=== PATIENT | female | born 1950 | race Caucasian/White ===

== ENCOUNTER 2022-11-28 10:13 | Emergency (ER) | payer MEDICARE, SELFPAY ==
[2022-11-28 10:24] VITALS: BP 123/73; PULSE 88; RESP 16; TEMP 36.7; O2SAT 97
--- NOTE | 2022-11-28 10:30 | RT.EKG_ITS ---
APPROVED REPORT Exam: Resting ECG Reason for Exam: chest pain Patient Location: E HR:82 bpm ECG Measurements Heart Rate 82 AXIS WV 157 P 70 QRSd 91 QRS 47 QT 367 T 61 QTc 428 Conclusion Sinus rhythm...normal P axis, V-rate 60- 99
[2022-11-28 10:48] VITALS: BP 125/58; PULSE 79; PULSE 85; RESP 14; O2SAT 96
[2022-11-28 11:01] VITALS: BP 108/58; PULSE 75; PULSE 78; RESP 15; O2SAT 94
[2022-11-28] MEDS: Mylanta Suspension 30 ML CUP PO (11:03)
[2022-11-28 11:08] LABS: Source Nasal/Nares
[2022-11-28 11:10] LABS: Abs Immature Grans 0.01 10^3/uL (0.0-0.06); Absolute Basophil Count 0.06 10^3/uL (0.0-0.2); Absolute Lymphocyte Count 1.83 10^3/uL (1.2-3.4); Absolute Monocyte Count 0.64 10^3/uL (0.1-0.8); Absolute Neutrophil Count 2.83 10^3/uL (1.2-6.7); Basophils % 1.1; Eosinophils % 3.6; HCT 39.6 % (36.0-46.0); HGB 13.2 g/dL (11.2-15.7); Immature Grans % 0.2; Lymphocytes % 32.9; MCH 29.8 pg (27.0-33.0); MCHC 33.3 % (32.0-36.0); MCV 89 fL (80-95); MPV 8.8 fL (8.0-11.0); Monocytes % 11.5; Neutrophils % 50.7; Platelet Count 263 10^3/uL (130-400); RBC 4.43 10^6/uL (3.93-5.22); RDW 13.2 % (11.7-14.6); RDW-SD 43.2 fL; WBC 5.57 10^3/uL (4.4-10.8)
[2022-11-28 11:16] VITALS: BP 105/70; PULSE 74; PULSE 78; O2SAT 94
[2022-11-28 11:32] LABS: ALT 25 U/L (14-59); AST 19 U/L (15-37); Albumin 3.5 g/dL (3.4-5.0); Alkaline Phosphatase 70 U/L (46-116); Anion Gap 8.7 mmol/L (3-11); BUN 15 mg/dL (7-18); Bilirubin, Total 0.4 mg/dL (0.2-1.0); CO2 26.3 mmol/L (21.0-32.0); CREATININE 0.8 mg/dL (0.55-1.02); Calcium 8.8 mg/dL (8.5-10.1); Chloride 107 mmol/L (98-107); Estimated GFR 79.22 (mL/min/1.73m2); Glucose 101 mg/dL (74-106); Lipase 43 U/L (16-77); NT-proBNP 44 pg/mL (<300); Sodium 142 mmol/L (136-145); Total Protein 6.9 g/dL (6.4-8.2); Troponin I < 50 ng/L (<or=60)
[2022-11-28 11:41] LABS: COVID-19 PCR Negative (Negative)
[2022-11-28 12:29] LABS: Bilirubin Negative (Negative); Blood Large (Negative); Clarity Clear (Clear); Glucose Negative (Negative); Ketones Negative (Negative); Leukocyte Esterase Negative (Negative); Nitrite Negative (Negative); Urobilinogen 0.2 mg/dL (Up to 0.2); pH 5.5 (5-8)
--- NOTE | 2022-11-28 12:32 | ED.GENADUL_ITS ---
Discharge Plan Disposition Patient Disposition: Home Condition: Stable Discharge Details Clinical Impression: Chest pain Primary Care Provider: Paulina Kurtz ED Provider: Deirdre Garcia Discharge Instructions Instructions: Chest Pain (ED) Additional Instructions: Please follow-up with your primary care physician for stress test in the outpatient setting at their discretion of course, I recommend starting on some Pepcid [id number] Keep yourself hydrated You may set up a Holter monitor as well in the outpatient setting, I will order 1 to further evaluate if you are having palpitations Should you have new or worsening complaints I recommend you being reassessed in the emergency department Referrals: Paulina Kurtz [Primary Care Provider] - 1 day Discharge Orders Other Ambulatory Orders: Holter Monitor (Routine) Timeframe: 1 Week Facility: [facility] - Location: Respiratory Therapy Ordered By: Deirdre Garcia Medical Decision Making 72-year-old female presents with report of chest pain and malaise Malaise for the past week and lightheadedness, chest pain started 48 hours ago, nonexertional, history of anxiety and heartburn, was unsure as to whether or not there is a cardiac equivalent EKG within normal limits for patient, 2 negative troponin analysis with 48 hours of symptoms, reassuring Diagnostic labs do not show evidence of significant acute abnormality Low suspicion for cardiac etiology of patient's complaint, alleviation of symptoms with Mylanta administration, instructed to start Pepcid at home and to follow-up with , Recommendation for outpatient stress test although relatively low suspicion for cardiac etiology of patient's complaints, no clinical signs or symptoms consistent with pulmonary embolism, no hypoxia, no tachypnea, no tachycardia, instructed to return should she have new or worsening complaints and to follow-up with her doctor in 24 to 48 hours for reassessment HPI General Date/Time Provider Initiated Documentation: 11/28/22 10:19 . HPI Narrative: This 72-year-old female who is otherwise reportedly healthy presents with tired feeling, lightheaded for the past 10 days with some pressure and chest and a sore throat per patient. She denies any exertional component in fact she shoveled her entire driveway during the last snowstorm and felt time aside from just being tired after. Has had stress test approximately 5 years ago which was normal per patient. States he has a history of anxiety and heartburn which is presented similarly in the past, has same symptoms currently. Denies any fever or chills. Denies any known sick contacts. Denies any urinary symptoms. Denies any cough. General Stated Complaint: Chest Pain BRENDA: 3 PFSH All Active Problems (Updated 11/28/22 @ 13:22 by ANDREW Manriquez) Palpitations (Acute) Chest pain (Acute) Social History Smoking risk assessment performed?: No Do you feel safe at home: Yes Exam Narrative Exam Narrative: Patient alert oriented and appears well, pupils equal round reactive to light and accommodation, no respiratory distress, lungs clear to auscultation, cardiac rate and rhythm regular, no palpable chest wall pain, no abdominal tenderness, skin pink warm dry, fully alert and oriented, no significant peripheral edema, nontender calf exam bilaterally, neurovascularly intact Course Vital Signs Vital signs: Vital Signs Temperature 36.7 C 11/28/22 10:24 Pulse 88 11/28/22 10:24 Respiratory Rate 16 11/28/22 10:24 Blood Pressure 123/73 11/28/22 10:24 Pulse Oximetry 97 11/28/22 10:24 Temperature 36.7 C 11/28/22 10:24 Temperature Source Tympanic 11/28/22 10:24 Pulse 74 11/28/22 11:16 Pulse 78 11/28/22 11:16 Respiratory Rate 15 11/28/22 11:01 Respiratory Effort Normal 11/28/22 10:57 Blood Pressure 105/70 11/28/22 11:16 Blood Pressure Mean 76 11/28/22 11:16 Blood Pressure Position Sitting 11/28/22 10:24 Pulse Oximetry 94 11/28/22 11:16 Oxygen Delivery Method Room Air 11/28/22 10:24 Oxygen Flow Rate 0 11/28/22 10:24 Pain Level 0 11/28/22 10:24 Lab/Test Results Lab/Test Results: Laboratory Tests Range/Units 11/28/22 11/28/22 11/28/22 10:55 10:55 10:55 WBC (4.4-10.8) 10^3/uL 5.57 RBC (3.93-5.22) 10^6/uL 4.43 Hgb (11.2-15.7) g/dL 13.2 Hct (36.0-46.0) % 39.6 MCV (80-95) fL 89 MCH (27.0-33.0) pg 29.8 MCHC (32.0-36.0) % 33.3 RDW (11.7-14.6) % 13.2 Plt Count (130-400) 10^3/uL 263 MPV (8.0-11.0) fL 8.8 Immature Gran % 0.2 Neutrophils % 50.7 Lymphocytes % 32.9 Monocytes % 11.5 Eosinophils % 3.6 Basophils % 1.1 Nucleated RBC % (0.0-0.3) % 0.0 Absolute Neutrophils (1.2-6.7) 10^3/uL 2.83 Absolute Lymphocytes (1.2-3.4) 10^3/uL 1.83 Absolute Monocytes (0.1-0.8) 10^3/uL 0.64 Absolute Eosinophils (0.0-0.7) 10^3/uL 0.20 Absolute Basophils (0.0-0.2) 10^3/uL 0.06 Sodium (136-145) mmol/L 142 Potassium (3.5-5.1) mmol/L 4.0 Chloride (98-107) mmol/L 107 Carbon Dioxide (21.0-32.0) mmol/L 26.3 Anion Gap (3-11) mmol/L 8.7 BUN (7-18) mg/dL 15 Creatinine (0.55-1.02) mg/dL 0.8 Est GFR (CKD-EPI 2020) (mL/min/1.73m2) 79.22 Glucose (74-106) mg/dL 101 Calcium (8.5-10.1) mg/dL 8.8 Magnesium (1.8-2.4) mg/dL 2.0 Total Bilirubin (0.2-1.0) mg/dL 0.4 AST (15-37) U/L 19 ALT (14-59) U/L 25 Alkaline Phosphatase (46-116) U/L 70 Troponin I (<or=60) ng/L < 50 NT-Pro-B Natriuret Pep (<300) pg/mL 44 Total Protein (6.4-8.2) g/dL 6.9 Albumin (3.4-5.0) g/dL 3.5 Lipase (16-77) U/L 43 COVID-19 Source Nasal/Nares SARS-CoV-2 (PCR) (Negative) Negative
[2022-11-28 12:46] LABS: Bacteria Rare HPF (Negative); Epithelial Cells Rare HPF (Negative); WBC Negative HPF (0-5)
[2022-11-28 12:47] LABS: C & S Indicated? No; Casts Negative LPF (Negative); Crystals Negative HPF (Negative); Mucus Negative (Negative)
--- NOTE | 2022-11-28 13:09 | DI.RAD_ITS ---
Exam(s) XR CHEST 2V PA LATERAL EXAM: XR CHEST 2V PA LATERAL CLINICAL HISTORY: chest pain. TECHNIQUE: 2D digital imaging was performed. COMPARISON: No exams were available for comparison FINDINGS: 2 views: Heart size is normal. The mediastinum is not widened. Lungs are clear. No infiltrates nor pleural effusions. IMPRESSION: No acute pulmonary findings. DATA REPOSITORY: RADIATION DOSE DELIVERED:
[2022-11-28 13:18] LABS: Troponin I < 50 ng/L (<or=60)
== END 2022-11-28 13:36 | disposition home or self-care (01) ==
PROVIDERS: Emergency Provider Physician Assistant; PCP Nurse Practitioner Family
DX: R07.89 Other chest pain (principal); R53.81 Other malaise; Z20.822 Contact with and (suspected) exposure to COVID-19
CPT/HCPCS: 36415; 80053; 83690; 87635; 93005; 99283; 99285; 71046; 81003; 81015; 83735; 83880; 84484; 85025; 93010

== ENCOUNTER 2024-05-14 00:35 | Emergency (ER) | payer MEDICARE, SELFPAY ==
[2024-05-14] VITALS (36 sets, daily range): BP systolic 110–128; BP diastolic 51–75; PULSE 77–99; RESP 12–29; TEMP 36.7; O2SAT 100
--- NOTE | 2024-05-14 00:15 | RT.EKG_ITS ---
APPROVED REPORT Exam: Resting ECG Reason for Exam: chest pain Patient Location: E HR:84 bpm ECG Measurements Heart Rate 84 AXIS UT 145 P 39 QRSd 92 QRS 47 QT 376 T 56 QTc 437 Conclusion Sinus rhythm, rate 84 No STEMI PVC
[2024-05-14 01:14] LABS: Abs Immature Grans 0.07 10^3/uL (0.0-0.06); Absolute Basophil Count 0.07 10^3/uL (0.0-0.2); Absolute Lymphocyte Count 2.78 10^3/uL (1.2-3.4); Absolute Monocyte Count 1.19 10^3/uL (0.1-0.8); Absolute Neutrophil Count 5.51 10^3/uL (1.2-6.7); Basophils % 0.7 %; HCT 40.4 % (36.0-46.0); HGB 13.2 g/dL (11.2-15.7); Immature Grans % 0.7 %; Lymphocytes % 28.3 %; MCH 30.1 pg (27.0-33.0); MCHC 32.7 % (32.0-36.0); MCV 92 fL (80-95); MPV 8.8 fL (8.0-11.0); Monocytes % 12.1 %; Neutrophils % 56.2 %; Platelet Count 312 10^3/uL (130-400); RBC 4.39 10^6/uL (3.93-5.22); RDW-SD 43.8 fL; WBC 9.82 10^3/uL (4.4-10.8)
--- NOTE | 2024-05-14 01:17 | ED.GENADUL_ITS ---
Discharge Plan Disposition Patient Disposition: Home Condition: Good Discharge Details Clinical Impression: Chest pain Primary Care Provider: Paulina Kurtz ED Provider: Basil Najera Discharge Instructions Instructions: Chest Pain, Adult ED Additional Instructions: You were seen in the ED for chest pain. Your exam, vitals, EKG, laboratory studies and CAT scan are all reassuring at this time. Please follow-up with primary care in the next week. Return to ED for any new or worsening chest pain, shortness of breath, syncope, neurologic change, other concerns. Referrals: Paulina Kurtz [Primary Care Provider] - [facility] General Mode of arrival: EMS . Date/Time Provider Initiated Documentation: 05/14/24 00:54 . Limitations to Documentation: no limitations . Information obtained by: patient and RN notes reviewed . HPI Narrative: Patient presents to ED by ambulance with complaint of chest pain. Patient has history of reflux as well as anxiety. She developed her typical indigestion but after about 30 minutes began to experience sharp chest pain worse with breathing. She had no shortness of breath but cannot take a deep breath. This was not something she has had previously and concerned her. There is no radiation of the sharp pain. The chest discomfort that she was experiencing prior to onset of the sharp pain was typical of her indigestion which she is used to. She denies any leg pain or leg swelling. She denies any recent fever or cough. Denies any abdominal pain or back pain. Did not have any significant nausea, lightheadedness, diaphoresis. Because of the sharp pain that she has never had before she called EMS. EMS did provide aspirin as well as 1 nitroglycerin. Nitroglycerin did not seem to change anything. Time has seemed to resolve most of her symptoms at this point. She has slight pain with deep breath at this point. Related Data Allergies Allergy/AdvReac Type Severity Reaction Status Date / Time Proton Pump Inhibitors AdvReac Mild Other (See Unverified 05/14/24 00:47 Comment) General Stated Complaint: Chest Pain BRENDA: 3 Review of Systems Narrative: Per HPI Exam Narrative Exam Narrative: Const: WDWN elderly female in NAD. VS per triage. HEENT: NC/AT. Normal facial exam. Neck: Supple. Trachea midline. Lungs: Normal respiratory effort. Lungs are clear. Cor: RRR without murmur. Good radial pulses. GI: Soft/ND/NT. Neuro: A+O x 3. Normal speech, mentation, gait. Cranial nerves II - XII grossly intact. No gross motor or sensory deficit. Ext: No C/C/E. No calf tenderness. Course Vital Signs Vital signs: Vital Signs Temperature 98.1 F 05/14/24 00:36 Pulse 82 05/14/24 00:36 Respiratory Rate 16 05/14/24 00:36 Blood Pressure 111/57 L 05/14/24 00:36 Pulse Oximetry 100 05/14/24 00:36 Temperature 98.1 F 05/14/24 00:36 Temperature Source Temporal Artery Scan 05/14/24 00:36 Pulse 82 05/14/24 00:36 Pulse 82 05/14/24 01:10 Respiratory Rate 12 05/14/24 01:10 Respiratory Effort Normal, Non-Labored 05/14/24 00:47 Respiratory Depth Normal 05/14/24 00:47 Respiratory Pattern Normal 05/14/24 00:47 Blood Pressure 111/57 L 05/14/24 00:36 Blood Pressure Position Supine 05/14/24 00:36 Pulse Oximetry 100 05/14/24 00:36 Oxygen Delivery Method Room Air 05/14/24 00:36 Oxygen Flow Rate 0 05/14/24 00:36 Pain Level 2 05/14/24 00:36 Lab/Test Results Lab/Test Results: Laboratory Tests Range/Units 05/14/24 00:40 WBC (4.4-10.8) 10^3/uL 9.82 RBC (3.93-5.22) 10^6/uL 4.39 Hgb (11.2-15.7) g/dL 13.2 Hct (36.0-46.0) % 40.4 MCV (80-95) fL 92 MCH (27.0-33.0) pg 30.1 MCHC (32.0-36.0) % 32.7 RDW (11.7-14.6) % 13.0 Plt Count (130-400) 10^3/uL 312 MPV (8.0-11.0) fL 8.8 Immature Gran % % 0.7 Neutrophils % % 56.2 Lymphocytes % % 28.3 Monocytes % % 12.1 Eosinophils % % 2.0 Basophils % % 0.7 Nucleated RBC % (0.0-0.3) % 0.0 Absolute Neutrophils (1.2-6.7) 10^3/uL 5.51 Absolute Lymphocytes (1.2-3.4) 10^3/uL 2.78 Absolute Monocytes (0.1-0.8) 10^3/uL 1.19 H Absolute Eosinophils (0.0-0.7) 10^3/uL 0.20 Absolute Basophils (0.0-0.2) 10^3/uL 0.07 Medical Decision Making Patient presenting to ED because of sharp pleuritic chest pain that began after she developed some typical indigestion symptoms. She did receive aspirin and nitroglycerin. She has no significant past medical history other than esophageal reflux. Her exam is unremarkable. Her EKG is sinus rhythm with PVC no acute ST changes. Doubt this is cardiac or pulmonary in nature and is more likely related to her reflux and esophageal spasm however given her age will obtain labs including serial troponin and D-dimer. Chest imaging per D-dimer result. I have discussed plan with patient. Patient's labs are all normal except for a positive D-dimer greater than 1000. CTA of the chest ordered. Second troponin to be drawn at 4 AM. CTA is negative. Repeat troponin remains negative. HEART score is a 2. Her history is not really consistent with a cardiac presentation. She will be discharged home to follow-up with primary care. Return precautions provided. Lab Data Lab results reviewed: Yes I reviewed the patient's lab results. Lab results narrative: See [facility] ECG Data Attestation: I personally reviewed and interpreted this ECG (s) as follows: Prior ECG tracings: available for review Interpretation: see [facility] PFS All Active Problems (Updated 05/14/24 @ 05:53 by Basil Najera MD) Chest pain (Acute) Palpitations (Acute) Medical History GERD (gastroesophageal reflux disease) Social History Smoking/Tobacco Use Status: Never Smoking risk assessment performed?: Yes Alcohol Intake: current Alcohol Intake frequency: holidays/special occasions only Drug use: Never Substance use type: does not use Do you feel safe at home: Yes
[2024-05-14 01:32] LABS: ALT 15 U/L (14-59); AST 19 U/L (15-37); Albumin 3.4 g/dL (3.4-5.0); Alkaline Phosphatase 75 U/L (46-116); Anion Gap 8.8 mmol/L (3-11); BUN 14 mg/dL (7-18); Bilirubin, Total 0.28 mg/dL (0.2-1.0); CO2 27.2 mmol/L (21.0-32.0); CREATININE 0.8 mg/dL (0.55-1.02); Calcium 8.8 mg/dL (8.5-10.1); Chloride 105 mmol/L (98-107); Estimated GFR 78.72 (mL/min/1.73m2); Glucose 104 mg/dL (74-106); Magnesium 1.9 mg/dL (1.8-2.4); Potassium 3.5 mmol/L (3.5-5.1); Sodium 141 mmol/L (136-145)
[2024-05-14 01:34] LABS: Troponin I < 50 ng/L (< or =60)
--- NOTE | 2024-05-14 01:45 | DI.CT_ITS ---
Exam(s) CT CHEST PE CTA EXAM: CT CHEST PE CTA CLINICAL HISTORY: CP with elevated D-dimer. TECHNIQUE: Imaging Protocol: Axial CT angiography was performed with multi-slice acquisition and mu lti-planar and/or 3D reconstructions. CONTRAST MATERIAL: Intravenous: Omnipaque 350 contrast volume:100 mL COMPARISON: CR XR CHEST 2V PA LATERAL from 11/28/2022 FINDINGS: Tracheobronchial tree: Patent where visualized. No bronchiectasis. Pulmonary parenchyma: No consolidation or dominant measurable mass. No architectural distortion. Pulmonary Arteries: No evidence of filling defect to suggest pulmonary emboli. Mediastinum and Malia: No dominant adenopathy or fluid collection. The esophagus is unremarkable. Th ere is a large paraesophageal hernia. Visualized thyroid gland: There are few tiny hypodensities in the thyroid gland. No follow-up is rec ommended. Pleura: No effusion or pneumothorax. Heart: The heart is not dilated. Mild coronary artery calcification is present. No pericardial effus ion. Aorta: Thoracic aorta non-dilated. No evidence of dissection. Atherosclerotic calcification is presen t. Upper abdomen: Cholelithiasis. There is a duodenal diverticulum present. There is diverticulosis o f the colon. Soft tissues: Unremarkable. Bones: Within normal limits for the patient's age.There are marked degenerative changes seen at the g lenohumeral joints bilaterally. IMPRESSION: 1. No evidence of pulmonary embolism, thoracic aortic dissection or aneurysm. 2. Incidental finding seen in the upper abdomen as described above. 3. No acute pulmonary process. RADIATION DOSE DELIVERED: 82.17mGy.cm Total DLP DATA REPOSITORY: All CT scans at this facility are submitted to the National Radiology Data Registry (NRDR) Dose Index Registry (DIR) with the [employer] ([employer]). RADIATION OPTIMIZATION: All CT scans at this facility use at least one of these dose optimization te chniques: automated exposure control; mA and/or kV adjustment per patient size (includes targeted exa ms where dose is matched to clinical indication); or iterative reconstruction.
[2024-05-14 01:56] LABS: D-Dimer 1020 ng/mlFEU (<500)
[2024-05-14] MEDS: Normal Saline - Diluent 50 ML VIAL IJ (02:12)
[2024-05-14] MEDS: Omnipaque 350 MG/ML 100 ML BTL IJ (02:12)
--- NOTE | 2024-05-14 03:47 | DI.VRAD_ITS ---
PROCEDURE INFORMATION: Exam: CTA Chest With Contrast Exam date and time: 05/14/2024 2:21 AM Age: 73 years old Clinical indication: Pain; Other: Cp with elevated d-dimer TECHNIQUE: Imaging protocol: Computed tomographic angiography of the chest with contrast. Exam focused on the arteries. 3D rendering (Not supervised by radiologist): MIP and/or 3D reconstructed images were created by the technologist. Contrast material: OMNI 350; Contrast volume: 100 ml; Contrast route: INTRAVENOUS (IV); COMPARISON: CR XR CHEST 2V PA LATERAL 11/28/2022 1:06 PM FINDINGS: Pulmonary arteries: Normal. No pulmonary emboli. Aorta: Mild aortic atherosclerosis. No acute aortic syndrome. Lungs: Lungs are clear allowing for expiratory phase imaging. Pleural spaces: Unremarkable. No pneumothorax. No pleural effusion. Heart: Unremarkable. No pericardial effusion. Esophagus: Esophagus is unremarkable. Lymph nodes: Unremarkable. No enlarged lymph nodes. Diaphragm: Large hiatal hernia. Gallbladder and biliary ducts: Cholelithiasis. No cholecystitis. Kidneys: Left renal pelvic cysts. Bones/joints: Unremarkable. No acute fracture. Soft tissues: Unremarkable. IMPRESSION: No acute findings. Dictated and Authenticated by: Vikas Cabrera MD. Ordering:ZAKIYA Gracia MD
[2024-05-14 05:41] LABS: Troponin I < 50 ng/L (< or =60)
--- NOTE | 2024-05-15 08:01 | NUR.NOTE ---
Accessed pt chart to reconcile EKG orders with EKG?s in [facility]. Duplicate order cancelled. Nursing Note:
== END 2024-05-14 05:59 | disposition home or self-care (01) ==
LOC: ER 06:21
PROVIDERS: Emergency Provider Emergency Medicine; PCP Nurse Practitioner Family
DX: R07.9 Chest pain, unspecified (principal); Z87.19 Personal history of other diseases of the digestive system
CPT/HCPCS: 36415; 71275; 80053; 93005; 99285; 83735; 84484; 85025; 85379; 93010; 99283; J3490